=== PATIENT | female | born 1960 | race Caucasian/White ===

== ENCOUNTER 2025-08-09 13:14 | Outpatient (CLI) | payer BC, SELFPAY ==
--- NOTE | 2025-08-09 13:45 | MR_ITS ---
[facility] [address] [facility] [address] Phone:?[phone] Fax:?[phone] Referring Physician Information: Moses Dunham M.D. [address] [address] Phone:?[phone] Fax:?[phone] Patient:Bel Epstein D.O.B:?1960 Sex:?Female Phone:?[phone] [facility] MRN:?[id number] Exam Date:?08/09/2025 EXAM: MRI of the LEFT HIP without contrast CLINICAL: Evaluate for bilateral hip arthritis and gluteal tendon tear. COMPARISONS: X-rays dated 06/07/2025. TECHNICAL: Multiplanar multisequence MRI of the left hip was obtained. Coronal large [id number] sequences of the pelvis/bilateral hips were also obtained. SEDATION: None. CONTRAST: None. FINDINGS: Hip joint: Small volume of fluid is seen within the left hip joint. No convincing loose bodies. There is high-grade chondral loss involving the superior and anterosuperior left hip joint. Labrum: There is attenuation and ill-defined fraying/tearing of the anterosuperior labrum. No perilabral cyst formation identified. Proximal femur: There is bone marrow edema involving the anterosuperior femoral head. No evidence of acute fracture or avascular necrosis. No convincing femoral cam morphology. Acetabulum: There is increased bone marrow edema involving the left acetabulum with small degenerative cystic change involving the anterior left acetabulum. No evidence of acetabular fracture. Version: No convincing retroversion. Coverage: Left lateral center edge (CE) angle measures approximately 34? (normal 25?-39?), midline coronal series 4 image 12. Ligamentum teres: Intact. Pelvis osseous structures: No suspicious marrow signal alteration or fracture line. Sacroiliac joints are maintained without marrow signal changes to suggest sacroiliitis or significant arthrosis. No evident arthrosis or changes of osteitis pubis at the symphysis pubis. Myotendinous structures: Gluteus abductors: There is mild tendinosis and mild partial tearing of the distal left gluteus minimus tendon with mild fluid within the subgluteus minimus bursa. Left gluteus medius tendon is intact. Adductors: No demonstrable tendinopathy or strain/tear. Hamstrings: Intact semimembranosus, semitendinosus and biceps femoris tendons, without tendinopathy or tear. Flexors: Intact iliopsoas and rectus femoris, without strain/tear. External rotators: Intact. The ischiofemoral and quadratus femoris spaces are within normal limits. Gluteal aponeurotic fascia and IT band: Unremarkable. Bursae: There is minimal fluid within the left trochanteric bursa. No significant fluid within the iliopsoas bursa. Intrapelvic structures: Although evaluation of the intrapelvic structures is limited on this exam, no convincing pelvic mass is identified as visualized. IMPRESSION: 1. Bone marrow edema involving the left hip joint likely reflecting reactive changes of arthrosis with high-grade chondral loss seen to involve the superior and anterosuperior left hip joint. No evidence of fracture. 2. Attenuation and ill-defined fraying/tearing of the anterosuperior labrum. 3. Mild tendinosis/partial tearing of the distal left gluteus minimus tendon with mild fluid within the subgluteus minimus bursa. Minimal fluid within the adjacent left trochanteric bursa. JCZ Electronically signed on 08/10/2025 8:03:00 AM by Neil Contreras D.O.
--- NOTE | 2025-08-09 14:30 | MR_ITS ---
[facility] [address] [facility] [address] Phone:?[phone] Fax:?[phone] Referring Physician Information: Moses Dunham M.D. [address] [address] Phone:?[phone] Fax:?[phone] Patient:Bel Epstein D.O.B:?1960 Sex:?Female Phone:?[phone] [facility] MRN:?[id number] Exam Date:?08/09/2025 EXAM: MRI of the RIGHT HIP without contrast CLINICAL: Evaluate for bilateral hip arthritis and gluteal tendon tear. COMPARISONS: X-rays dated 06/07/2025. TECHNICAL: Multiplanar multisequence MRI of the right hip was obtained. Coronal large [id number] sequences of the pelvis/bilateral hips were also obtained. SEDATION: None. CONTRAST: None. FINDINGS: Hip joint: Small volume of fluid is present within the right hip joint. No convincing loose bodies. There is high-grade/full-thickness chondral loss seen to involve the right hip joint. Labrum: There is tearing of the anterior and anterosuperior labrum as seen on axial oblique series images 10-17. No perilabral cyst formation identified. Proximal femur: There is mild marrow edema involving the medial and superomedial femoral head likely reflecting reactive changes of arthrosis with small degenerative cystic change involving the medial femoral head about the fovea. There is mild degenerative peripheral marginal spurring involving the femoral head neck junction. No convincing femoral cam morphology. Acetabulum: Bone marrow edema involving the anterior and anterosuperior acetabulum is consistent with reactive changes of arthrosis. No discrete fracture identified. Version: No convincing retroversion. Coverage: Right lateral center edge (CE) angle measures approximately 39? (normal 25?-39?), midline coronal series 4 image 12. Ligamentum teres: Intact. Myotendinous structures: Gluteus abductors: No convincing insertional tendinopathy or tear of gluteus minimus or medius. Adductors: No demonstrable tendinopathy or strain/tear. Hamstrings: Intact semimembranosus, semitendinosus and biceps femoris tendons, without tendinopathy or tear. Flexors: Intact iliopsoas and rectus femoris, without strain/tear. External rotators: Intact. The ischiofemoral and quadratus femoris spaces are within normal limits. Gluteal aponeurotic fascia and IT band: Unremarkable. Bursae: No demonstrable trochanteric or iliopsoas bursitis. IMPRESSION: 1. Changes of right hip osteoarthritis as above with high-grade/full-thickness chondral loss seen to involve the right hip joint. 2. Tearing of the anterior and anterosuperior labrum. 3. No evidence of fracture or myotendinous injury. JCZ Electronically signed on 08/10/2025 8:10:00 AM by Neil Contreras D.O.
== END 2025-08-09 13:15 | disposition home or self-care (01) ==
LOC: MRI 13:16
PROVIDERS: PCP Internal Medicine; Visit Provider Orthopaedic Surgery Sports Medicine
DX: M16.0 Bilateral primary osteoarthritis of hip (principal); S73.102A Unspecified sprain of left hip, initial encounter; S73.101A Unspecified sprain of right hip, initial encounter
CPT/HCPCS: 73721